=== PATIENT | male | born 1980 | race Caucasian/White ===

== ENCOUNTER 2017-09-19 22:22 | Emergency (ER) | payer OTHER ==
[2017-09-19] MEDS ORDERED: Bacitracin Oint 1 GM U/D Packet TOP ONE (23:39)
[2017-09-19] MEDS ORDERED: Lidocaine 1% 30 ML SDV ONE (23:49)
--- NOTE | 2017-09-20 00:07 | EDM.PDOC ---
ED HPI GENERAL MEDICAL PROBLEM - General Chief Complaint: Laceration Stated Complaint: FISH HOOK IN FINGER, [id number] Time Seen by Provider: 09/19/17 23:50 Source of Information: Reports: Patient History Limitations: Reports: No Limitations - History of Present Illness INITIAL COMMENTS - FREE TEXT/NARRATIVE: fish hool left thumb [employer]IST, New lure, Songle moris from treble hook. Tetnus current Left Hand Pain Score (Numeric/FACES): 2 - Related Data Allergies Allergy/AdvReac Type Severity Reaction Status Date / Time No Known Allergies Allergy Verified 09/19/17 22:41 Home Meds: Home Meds Omeprazole 20 mg PO DAILY 09/19/17 [History] Past Medical History HEENT History: Reports: None Cardiovascular History: Reports: None Respiratory History: Reports: None Gastrointestinal History: Reports: GERD Genitourinary History: Reports: None Musculoskeletal History: Reports: None Neurological History: Reports: None Psychiatric History: Reports: None Endocrine/Metabolic History: Reports: None Hematologic History: Reports: None Immunologic History: Reports: None Oncologic (Cancer) History: Reports: None Dermatologic History: Reports: None Social & Family History - Tobacco Use Smoking Status *Q: Never Smoker - Recreational Drug Use Recreational Drug Use: No ED ROS GENERAL - Review of Systems Review Of Systems: ROS reveals no pertinent complaints other than HPI. ED EXAM, SKIN/RASH Exam: See Below Exam Limited By: No Limitations General Appearance: Alert, No Apparent Distress Eye Exam: Bilateral Eye: EOMI Ears: Normal External Exam Neck: Normal Inspection Respiratory/Chest: No Respiratory Distress Cardiovascular: Normal Peripheral Pulses, Regular Rate, Rhythm GI/Abdominal: Normal Bowel Sounds Extremities: Other (fish hook left thumb) Neurological: Alert, Oriented Psychiatric: Normal Affect Skin: Warm, Dry, Intact, Normal Color Location, Skin: Upper Extremity, Left Associated features: Tenderness ED SKIN PROCEDURES - Additional/Other Procedure(s) Other (Free Text) Procedure(s): area cleansed betadine, anesthetize 1 % lidocaine, 1cc. Fsh hook moris directed through pad callous, hook loop cut, moris removed. Course - Vital Signs Last Recorded V/S: Last Vital Signs Temp 97.6 F 09/19/17 22:41 Pulse 73 09/19/17 22:41 Resp 16 09/19/17 22:41 BP 130/93 H 09/19/17 22:41 Pulse Ox 98 09/19/17 22:41 - Orders/Labs/Meds Meds: Medications Discontinued Medications Generic Name Dose Route Start Last Admin Trade Name Edmund PRN Reason Stop Dose Admin Bacitracin 1 dose 09/19/17 23:39 09/20/17 00:05 Bacitracin Oint 1 Gm TOP 09/19/17 23:40 1 dose ONETIME ONE Administration Lidocaine HCl Confirm 09/19/17 23:49 09/20/17 00:05 Xylocaine-Mpf 1% Administered 09/19/17 23:50 30 ml Dose Administration 30 ml .ROUTE .STK-MED ONE Departure - Departure Time of Disposition: 00:05 Disposition: Home, Self-Care 01 Condition: Good Clinical Impression: Removal of foreign body, Puncture wound - injury - Discharge Information Instructions: Puncture Wound, [id number] Forms: ED Department Discharge Additional Instructions: keep clean and dry wash with soap and water 3 times daily monitor and follow up if any signs of infection, redness swelling or drainage. tylenol or ibuprofen for discomfort
== END 2017-09-20 00:10 | disposition home or self-care (01) ==
LOC: DL.ED 22:22
DX: S61.032A Puncture wound without foreign body of left thumb without damage to nail, initial encounter (principal); W45.8XXA Other foreign body or object entering through skin, initial encounter
CPT/HCPCS: 99283